=== PATIENT | male | born 1950 | race Hispanic/Latino ===

== ENCOUNTER 2019-08-16 14:38 | Emergency (ER) | payer MEDICARE | END 2019-08-16 16:52 | disposition home or self-care (01) | LOC: EDH 14:38 | DX: R27.0 Ataxia, unspecified (principal) | CPT/HCPCS: 70450 ==

== ENCOUNTER 2024-07-29 18:14 | Emergency (ER) | payer OTHER, MEDICARE ==
[~2024-07-29] VITALS: Ht 160 cm; Wt 68.9 kg
--- NOTE | 2024-07-29 18:28 | ERN ---
ED Note History of Present Illness Stated Complaint: FAILED OUT [place] FOR UTI Chief Complaint: Urinary Frequency Time Seen by MD: 18:16 Dictation: PATIENT IS A 74-YEAR-OLD MALE COMING IN WITH [facility]. HE HAS A NOTE THAT PATIENT NEEDS TO BE EVALUATED IN THE EMERGENCY ROOM FOR FAILED OUTPATIENT TREATMENT OF A URINARY TRACT INFECTION. PATIENT HAS A CULTURE AND SENSITIVITY REPORT FROM [facility] IN [place] HE IS SENSITIVE TO NITROFURANTOIN/BACTRIM/ER TAPENEM /ZOSYN. PATIENT AND STATE HE HAS BEEN ON THREE DIFFERENT MEDICATIONS FOR THE URINARY TRACT INFECTION OVER THE LAST MONTH. PATIENT IS AFEBRILE NO FEVER NO CHILLS NO NAUSEA NO VOMITING NO COMPLAINTS OF ANY PAIN IN AT THIS TIME. HORACIO TRIAGE NURSE STATES SHE GOT A CALL FROM PATIENT'S DAUGHTER AT [place] WHO SAID THAT SHE WAS THE MEDICAL [id number]. SHE STATES SHE WAS SITTING HER DAD OVER WITH HER MOTHER WHO IS A OTHER MEDICAL [id number], THAT THEY WANTED HIM ADMITTED TO [facility]. THEY SAID HE HAS A HISTORY OF BEING CONFUSED AND DEMENTED, WE WILL BE COME DIFFICULT WHEN WE TRIED TO STARTED IVS AND WE ARE TO SEDATE THE PATIENT TO DRAW BLOOD OR TO COLLECT URINE. NORMAL STATUS SHE TOLD THE DAUGHTER THAT THIS WOULD NOT BE DONE AND THAT WE COULD NOT HOLD HIM AGAINST HIS WILL FOR TREATMENT THAT HE DID NOT WANT. Allergies: Coded Allergies: No Known Allergies (Unverified Allergy, Unknown, 07/01/13) Past Medical History Past Medical History: Depression, High Cholesterol, Hypertension Additional Past Medical Hx: SLEEP APNEA Surgical History: None RN Note Reviewed/Agreed w/PFSH: Yes Review of System Dictation CONSTITUTIONAL: NEGATIVE EXCEPT FOR HPI HEAD/FACE: NEGATIVE EXCEPT FOR HPI EENT: NEGATIVE EXCEPT FOR HPI RESPIRATORY: NEGATIVE EXCEPT FOR HPI GASTROINTESTINAL/ABDOMINAL: NEGATIVE EXCEPT FOR HPI GENITOURINARY: NEGATIVE EXCEPT FOR HPI MUSCULOSKELETAL: NEGATIVE EXCEPT FOR HPI INTEGUMENTARY: NEGATIVE EXCEPT FOR HPI NEUROLOGICAL/PSYCH: NEGATIVE EXCEPT FOR HPI HEMATOLOGIC/LYMPHATIC: NEGATIVE EXCEPT FOR HPI ALL SYSTEMS NEGATIVE, EXCEPT NOTED ABOVE. 13 POINT REVIEW OF SYSTEMS ASSESSED AND ALL NEGATIVE EXCEPT FOR ABOVE. Initial Vital Sign VS Vital Signs Date Time Temp Pulse Resp B/P (MAP) Pulse Ox O2 Delivery O2 Flow Rate FiO2 07/29/24 18:16 98.2 78 16 135/74 97 Room Air 0 Physical Exam Dictation VITAL SIGNS REVIEWED GENERAL APPEARANCE: ALERT, ORIENTED X 3, NO ACUTE DISTRESS, WELL DEVELOPED, NOURISHED. 0/10, NO COMPLAINTS OF PAIN HEAD AND FACE: NON-TRAUMATIC. EYES: PERRL, PINK CONJUNCTIVAS, EYELID NO TRAUMA, ANTERIOR CHAMBER WITH ARCUS SENILIS. EARS: PINNAS INTACT AND NO SIGNS OF TRAUMA OR ERYTHEMA EAR CANALS CLEAR AND NO DISCHARGE TM NO ERYTHEMA NOSE: NO DISCHARGE, NO BLEEDING. OROPHARYNX: MOUTH NORMAL, TONGUE PINK, PHARYNX CLEAR,NO ERYTHEMA, TONSILS NO EXUDATES, NO ABSCESSES NOTED, MUCOUS MEMBRANE MOIST NECK: SUPPLE, NON-TENDER, NO THYROMEGALY, NO MASSES, NO JVD, NO BRUITS BREAST:DEFERRED CHEST:NO TENDERNESS, NO CREPITUS, NO PARADOXICAL MOVEMENT, NO RETRACTIONS LUNGS:CLEAR, WELL-VENTILATED, SYMMETRIC, NO RALES, NO WHEEZING, NO RHONCHI, NO STRIDOR, GOOD BREATH SOUNDS BILATERALLY HEART: REGULAR RATE, REGULAR RHYTHM, NO MURMUR, NO GALLOPS VASCULAR: NO PERIPHERAL EDEMA, ABDOMEN: SOFT, POSITIVE BOWEL SOUNDS, NONDISTENDED, NO GUARDING, NONTENDER, NO REBOUND, NO MASSES NO HEPATOMEGALY, NO SPLENOMEGALY, NO HOSKINS'S SIGN, NO HERNIAS. RECTAL: DEFERRED GENITAL: DEFERRED NEUROLOGICAL: NORMAL SPEECH, MOTOR FUNCTION INTACT, SENSORY FUNCTION INTACT MUSCULOSKELETAL: NECK NONTENDER, FULL RANGE OF MOTION, BACK NONTENDER, FULL RANGE OF MOTION, EXTREMITIES: NONTENDER, FULL RANGE OF MOTION SKIN: COLOR PINK, DRY, NO TURGOR, NO RASH, NO LACERATIONS, NO ABRASIONS, NO CONTUSIONS. LYMPHATIC: DEFERRED Results (Laboratory/Radiology) Laboratory/Radiology Laboratory Tests Test 07/29/24 18:38 White Blood Count 6.3 K/uL (4.8-10.8) Red Blood Count 3.99 MIL/uL (4.50-6.20) L Hemoglobin 13.1 g/dL (14.0-18.0) L Hematocrit 37.7 % (42-54) L Mean Corpuscular Volume 94.5 fL (79-99) Mean Corpuscular Hemoglobin 32.8 pg (27.0-33.0) Mean Corpuscular Hemoglobin Concent 34.7 g/dL (32.0-36.0) Red Cell Distribution Width 12.5 % (11.0-15.5) Platelet Count 201 K/uL (130-400) Mean Platelet Volume 10.4 fL (7.5-10.5) Immature Granulocyte % (Auto) 0.3 % (0-1) Neutrophils (%) (Auto) 66.9 % (40.0-77.0) Lymphocytes (%) (Auto) 24.2 % (21.0-51.0) Monocytes (%) (Auto) 7.6 % (3.0-13.0) Eosinophils (%) (Auto) 0.5 % (0.0-8.0) Basophils (%) (Auto) 0.5 % (0.0-5.0) Neutrophils # (Auto) 4.2 K/uL (1.8-7.7) Lymphocytes # (Auto) 1.5 K/uL (1.0-4.8) Monocytes # (Auto) 0.5 K/uL (0.1-1.0) Eosinophils # (Auto) 0.03 K/uL (0.00-0.70) Basophils # (Auto) 0.03 K/uL (0.00-0.20) Absolute Immature Granulocyte (auto 0.02 K/uL (0-1) Nucleated Red Blood Cells 0.0 % (0.0-0.19) Sodium Level 139 mmol/L (136-145) Potassium Level 3.4 mmol/L (3.5-5.1) L Chloride Level 104 mmol/L (101-111) Carbon Dioxide Level 29 mmol/L (21-32) Blood Urea Nitrogen 13 mg/dL (7-18) Creatinine 1.2 mg/dL (0.5-1.3) Glomerular Filtration Rate Calc 64 mL/min (>90) Random Glucose 134 mg/dL (70-105) H Lactic Acid Level 1.6 mmol/L (0.8-2.5) Total Calcium 8.8 mg/dL (8.5-10.1) Labs Reviewed?: Yes ED Course ED Course Orders Procedure Category Date Status Time Blood Cult KAREN 07/29/24 In Process 18:21 Lactic Acid LAB 07/29/24 Complete 18:21 Cbc With Differential LAB 07/29/24 Complete 18:21 Urinalysis Profile LAB 07/29/24 Logged 18:21 Basic Metabolic Panel LAB 07/29/24 Complete 18:21 Bactrim 800mg/160mg PHA 07/29/24 Complete 10ml Vial (Bactrim 8 19:37 Bactrim 800mg/160mg PHA 07/29/24 In Process 10ml Vial (Bactrim 8 20:04 Current Medications Medications (Trade) Dose Ordered Sig/Ramesh Route PRN Reason Start Time Stop Time Status Last Admin Dose Admin Trimethoprim/ Sulfamethoxazole 140 mg/Dextrose 250 ml @ 166.667 mls/hr ONCE STAT IV 07/29/24 20:04 07/29/24 21:33 07/29/24 20:23 Trimethoprim/ Sulfamethoxazole 160 mg/Dextrose 250 ml @ 166.667 mls/hr ONCE STAT IV 07/29/24 19:37 07/29/24 20:04 DC Vital Signs Date Time Temp Pulse Resp B/P (MAP) Pulse Ox O2 Delivery O2 Flow Rate FiO2 07/29/24 18:16 98.2 78 16 135/74 97 Room Air 0 2000/SPOKE WITH AT LENGTH REGARDING PATIENT'S CONDITION AND LACK OF SYMPTOMS. I WAS AWARE OF HIS ESBL UTI HOWEVER I EXPLAINED TO HER THAT WE WERE UNABLE TO SEDATE THIS MAN AND HOLD HIM DOWN TO TREAT HIM. SHE SAID SHE UNDERSTOOD WHEN I REVIEWED THE CULTURE AND SENSITIVITY REPORT PATIENT WAS SENSITIVE TO ERTAPENEM, ZOSYN, NITROFURANTOIN, BACTRIM. WE AGREED THAT I WOULD GIVE HIM A DOSE OF BACTRIM IV PIGGYBACK AND DISCHARGE HIM HOME WITH SEVEN DAYS' WORTH OF BACTRIM IF HE BECAME SYMPTOMATIC SHE WILL NEED TO BRING HIM BACK. SHE SAID SHE AGREED AND SAID THAT SHE WOULD BE ABLE TO GET THE MEDICATIONS DOWN HIM WITHOUT DIFFICULTY. WHEN I APPROACHED THE PATIENT AND TOLD HIM I WANT TO GIVE HIM AN IV ANTIBIOTIC, HE SAID WHAT THE HELL FOR I TOLD HIM IT WOULD BE FOR A SINGLE DOSE FOR HIS URINARY TRACT INFECTION AND THAT I COULD SEND HIM HOME AFTER THAT HE SAID HE WOULD AGREED TO STAY FOR THE TREATMENT. HE WAS SITTING OFF AWAY FROM HIS AND THEY WERE NOT TALKING BECAUSE SHE SAID HE WAS MAD AT HER SINCE HE HAS BEEN HERE. 2114 INFUSION OF BACTRIM IS COMPLETE. PATIENT DISCHARGED HOME WITH BACTRIM DS B.I.D. FOR SEVEN DAYS GIVEN INSTRUCTIONS ON RETURNED TO HOSPITAL CRITERIA TO INCLUDE FEVER CHILLS NAUSEA VOMITING UNABLE TO KEEP FOOD OR FLUIDS DOWN. Medical Decision Making MDM MDM: DIFFERENTIAL DIAGNOSIS: COMPLICATED UTI/ELECTROLYTE IMBALANCE/DEHYDRATION/SEPSIS/OMAIRA RATIONALE: TESTS CONSIDERED AND ORDERED SECONDARY TO SHARED DECISION MAKING INCLUDE: LABS, BLOOD CULTURES PREVIOUS OUTSIDE RECORDS REVIEWED: OLD ER VISITS. RISK OF COMPLICATION AND/OR MORBIDITY OR MORTALITY OF PATIENT MANAGEMENT: NONE MEDICATIONS-PER MEDICATION RECONCILIATION NEED FOR HOSPITALIZATION: PATIENT DOES NOT MEET CRITERIA FOR HOSPITALIZATION. PATIENT IS DEMENTED AND VERY COMBATIVE WITH THE ANY KIND OF REDIRECTION REFUSES TO STAY, IS AT BEDSIDE AND SAID SHE UNDERSTANDS NEED FOR EMERGENCY MAJOR/MINOR SURGERY: NO THERE ARE NO SOCIAL CONCERNS WITH THIS PATIENT. PRESCRIPTION DRUG MANAGEMENT BACTRIM DS P.O. B.I.D. FOR SEVEN DAYS PRESCRIPTIONS WILL INCLUDE SYMPTOMATIC CARE PATIENT'S PRIOR EXTERNAL MEDICAL RECORDS FROM OTHER ER VISITS WERE REVIEWED BY ME INDICATED. PRIOR TESTING AND RESULTS FROM PREVIOUS VISITS WERE REVIEWED. PRIOR TESTS WERE TAKEN INTO ACCOUNT WITH MEDICAL DECISION MAKING AND RESOURCE UTILIZATION, INDEPENDENT HISTORIAN/HISTORIANS WERE USED TO OBTAIN COMPLETE MEDICAL HISTORY. I INDEPENDENTLY INTERPRETED THE TEST THAT WERE PERFORMED, RESULTS WERE REVIEWED BY ME AND CONSIDERED FINDINGS ON RADIOLOGY IF ORDERED. MEDICAL MANAGEMENT AND EXAMINATION INTERPRETATION DISCUSSIONS WERE HAD BY ME WITH OTHER QUALIFIED HEALTHCARE PROFESSIONALS INDICATED FOR THE PATIENT'S CARE. DX & DISP Disposition: Discharge Departure Impression: Primary Impression: Complicated UTI (urinary tract infection) Additional Impressions: ESBL (extended spectrum beta-lactamase) producing bacteria infection, Hyperglycemia, Hypokalemia, Dementia Condition: Stable Scripts Sulfamethoxazole/Trimethoprim (Bactrim Ds Tablet) 800 Mg-160 Mg Tablet 1 TAB PO BID for 7 Days, #14 TAB 0 Refills Prov: NOA TYSON SPEARER 07/29/24 Additional Instructions: FOLLOW-UP WITH PRIMARY CARE PROVIDER IN 1 TO 2 DAYS. TAKE MEDICATIONS DIRECTED HERE IN THE EMERGENCY ROOM. OKAY TO CONTINUE HOME MEDICATIONS UNLESS OTHERWISE DISCUSSED DURING YOUR VISIT IN THE EMERGENCY ROOM TODAY. RETURN TO YOUR NEAREST EMERGENCY ROOM IF SYMPTOMS WORSEN OR IF THERE IS NO IMPROVEMENT. CALL 911 IF YOU NEED IMMEDIATE ASSISTANCE. TAKE TYLENOL OR MOTRIN [id number] NEEDED AND IF NO CONTRAINDICATIONS ARE PRESENT. INCREASE ORAL HYDRATION. A WOUND CULTURE OR URINE CULTURE WAS ORDERED HERE IN THE EMERGENCY ROOM DEPARTMENT PLEASE FOLLOW-UP WITH PRIMARY CARE PROVIDER AND ADVISE THEM TO GET REPEAT PORTS FROM OUR FACILITY. IF YOU HAD ANY VINNIE WRAP/SPLINTS THAT WERE APPLIED HERE, PLEASE DO NOT REMOVE THEM UNTIL YOU SEE YOUR PRIMARY CARE OR SPECIALTY. TAKE ANTIBIOTICS DIRECTED UNTIL GONE. FOLLOW UP WITH YOUR DOCTOR AT THE [facility] NEEDED. RETURN TO THE EMERGENCY ROOM IMMEDIATELY IF FEVER CHILLS, TEMPERATURE MORE THAN 101, UNABLE TO KEEP FOOD OR FLUIDS DOWN OR ANY OTHER NEW COMPLAINTS. Referrals: SELF,REFERRAL (PCP) Time of Disposition: 21:17 I have reviewed the case, and I agree with, Diagnosis and Plan NOA TYSON NP Jul 29, 2024 18:28
[2024-07-29 18:51] LABS: BASOPHILS # (AUTO) 0.03 K/uL (0.00-0.20); BASOPHILS % (AUTO) 0.5 % (0.0-5.0); EOSINOPHILS # (AUTO) 0.03 K/uL (0.00-0.70); EOSINOPHILS % (AUTO) 0.5 % (0.0-8.0); HEMATOCRIT 37.7 % (42-54); IMMATURE GRANULOCYTE ABSOLUTE 0.02 K/uL (0-1); LYMPHOCYTES # (AUTO) 1.5 K/uL (1.0-4.8); LYMPHOCYTES % (AUTO) 24.2 % (21.0-51.0); MEAN CORPUSCULAR HEMOGLOBIN 32.8 pg (27.0-33.0); MEAN CORPUSCULAR HGB CONC 34.7 g/dL (32.0-36.0); MEAN CORPUSCULAR VOLUME 94.5 fL (79-99); MONOCYTES # (AUTO) 0.5 K/uL (0.1-1.0); MONOCYTES % (AUTO) 7.6 % (3.0-13.0); NEUTROPHILS # (AUTO) 4.2 K/uL (1.8-7.7); NEUTROPHILS % (AUTO) 66.9 % (40.0-77.0); PLATELET COUNT (AUTO) 201 K/uL (130-400); RED BLOOD CELL COUNT(AUTO) 3.99 MIL/uL (4.50-6.20); RED CELL DISTRIBUTION WIDTH 12.5 % (11.0-15.5); WHITE BLOOD COUNT (AUTO) 6.3 K/uL (4.8-10.8)
[2024-07-29 19:11] LABS: CREATININE 1.2 mg/dL (0.5-1.3); POTASSIUM 3.4 mmol/L (3.5-5.1)
[2024-07-29] MEDS ORDERED: WATER IV STA (19:37)
[2024-07-29] MEDS ORDERED: DEXTROSE 5% IV STA (19:37)
[2024-07-29] MEDS ORDERED: BACTRIM IV STA (19:37)
[2024-07-29] MEDS: DEXTROSE 5% IV STA (20:23)
[2024-07-29] MEDS: BACTRIM IV STA (20:23)
[2024-07-29] MEDS: WATER IV STA (20:23)
[2024-07-29] MEDS ORDERED: SULF1TAB42 PO (21:18)
[2024-07-29] MEDS: PoTASSium BIcarbonate/CIT AC 25 MEQ TABLET.EFF PO ONE (21:31)
[2024-07-29 21:43] VITALS: BP 132/67; PULSE 69; RESP 18; TEMP 98.2; O2SAT 98
== END 2024-07-29 21:44 | disposition home or self-care (01) ==
LOC: EDH 18:14
DX: N39.0 Urinary tract infection, site not specified (principal); E87.6 Hypokalemia; R73.9 Hyperglycemia, unspecified; E78.00 Pure hypercholesterolemia, unspecified; F03.90 Unspecified dementia, unspecified severity, without behavioral disturbance, psychotic disturbance, mood disturbance, and anxiety; I10 Essential (primary) hypertension; F32.A Depression, unspecified
CPT/HCPCS: 99284; 96365; 96366; 80048; 85025; 87040 ×2; 83605; 36415; J3490 ×2; J7060 ×2